=== PATIENT | female | born 1955 | race Caucasian/White ===

== ENCOUNTER → 2017-04-21 | Outpatient (CLI) | payer BC | LOC: RAD 14:56 | DX: R92.8 Other abnormal and inconclusive findings on diagnostic imaging of breast (principal) ==

== ENCOUNTER → 2017-06-07 | Outpatient (CLI) | payer BC ==
[~2017-06-07] MED LIST: ASPIRIN 81MG TA81 MG PO; LEVOTHYROXINE0.15 MG PO; LIPITOR40 MG PO; PREDNISONE 10MG10 MG PO
--- NOTE | 2017-06-14 10:45 | RADIOLOGY REPORT PS360 ---
US CYST ASPIRATION, US BREAST-LT COMPLETE W/AXILLA CLINICAL INDICATION: Left breast nodule, abnormal ultrasound and mammogram. Complex nodule at 5:00 ABNORMAL MAMM ORDERING PHYSICIAN: Jose Contreras MD PATIENT AGE: 61 years COMPARISON: Left breast ultrasound of 04/21/2017 prebiopsy ultrasound: Persistent hypoechoic 6 mm nodule at 5:00 region. TECHNIQUE: Following obtaining informed consent under aseptic conditions and local anesthesia with 1% lidocaine, a 25-gauge needle used for aspiration of the left breast nodule. No immediate complications. Cytology: Negative for malignant cells. IMPRESSION: Fine-needle aspiration of left breast shows no evidence of malignancy. 6 month sonographic follow-up recommended
--- NOTE | 2017-06-14 10:53 | RADIOLOGY REPORT PS360 ---
STEREOTATIC BX-W/CLIP-LT, STEROTATIC BX W/CLIP-RT DIG MAMM-DX UNI-LT W/CAD, DIG MAMM-DX UNI-RT W/CAD, ORDERING PHYSICIAN: Jose Contreras MD PATIENT AGE: 61 years EXAM: BILATERAL stereotactic breast biopsy with bilateral with bilateral clip placement and bilateral post biopsy mammogram HISTORY: Bilateral suspicious Breast calcifications . PROCEDURE: The patient was given 0.5 mg of Xanax, Lortab 5 mg, and analgesia and minor sedation. Calcifications in the upper outer aspect of the right breast were initially localized. Following obtaining informed consent under aseptic conditions and local anesthesia with 1% buffered lidocaine and deeper anesthesia with lidocaine mixed with epinephrine, a skin tammy was performed. 9 gauge mammotomy needle was inserted and multiple biopsies obtained. Specimen radiograph did demonstrate calcifications of interest. Nonferromagnetic clip was then placed. Same procedure was repeated for the left breast for the calcifications in the upper outer quadrant. Specimen radiograph also demonstrated calcifications of interest. The core biopsies obtained were sent for specimen mammography. After the calcifications were indeed identified on the specimen mammogram, the procedure was terminated. The patient tolerated the procedure well without complications. Specimen was sent for pathologic analysis . Routine follow-up phone call to patient is to be performed as well. Pathology: Right breast: Dense stromal fibrosis with hyalinization and microcalcifications. Negative for atypia or malignancy. Left breast pathology: Hyalinized fibroadenoma with microcalcifications. Negative for atypia or malignancy. IMPRESSION: 1. Successful bilateral stereotactic breast biopsy showing benign findings. Recommendations: Bilat. mammogram in 6 months as well as left breast ultrasound per routine protocol SPECIMEN RADIOGRAPH: The mammographically evident calcifications from the prior study are currently evident within the Sergio dish and within the specimens obtained during mammotome procedure. This is considered an adequate specimen and the procedure was terminated. IMPRESSION: Successful removal of described breast calcifications. Bilateral BREAST MAMMOGRAM: Compared to the prior study, the previously noted calcification have been removed. A small MicroMark clip was inserted into the region of the calcifications. There is evidence of soft tissue changes in the region of the biopsy was soft tissue gas and edema. IMPRESSION: 1. Adequate placement of the MicroMark clip postbiopsy. 2. Postbiopsy changes within the both breasts.
== END ==
LOC: RAD 10:28
PROC: 0H9V3ZX Drainage of Bilateral Breast, Percutaneous Approach, Diagnostic (ICD-10-PCS; principal; 2017-06-07)
PROC: 0H9U3ZX Drainage of Left Breast, Percutaneous Approach, Diagnostic (ICD-10-PCS; 2017-06-07)
DX: R92.8 Other abnormal and inconclusive findings on diagnostic imaging of breast (principal); N63.20 Unspecified lump in the left breast, unspecified quadrant
CPT/HCPCS: G0206-LT; G0206-RT